=== PATIENT | male | born 1980 | race American Indian/Alaskan Native ===

== ENCOUNTER 2017-02-24 09:37 | Emergency (ER) | payer MEDICAID, OTHER ==
[~2017-02-24] VITALS: Ht 182.9 cm; Wt 108.0 kg
[2017-02-24 09:39] VITALS: BP 142/88
== END 2017-02-24 10:47 | disposition home or self-care (01) ==
LOC: ED 10:20
DX: B35.9 Dermatophytosis, unspecified (principal)
CPT/HCPCS: 99283

== ENCOUNTER 2017-09-20 16:44 | Emergency (ER) | payer MEDICAID ==
[~2017-09-20] VITALS: Ht 182.9 cm; Wt 113.4 kg
[2017-09-20 16:47] VITALS: BP 173/97
[2017-09-20] MEDS ORDERED: SODIUM CHLORIDE 0.9% 1,000ML IVBOLUS ONE (17:30)
[2017-09-20 17:51] LABS: HEMATOCRIT 45.4 % (39.2-51.8); WHITE BLOOD COUNT 9.3 x10^3/uL (3.4-10)
[2017-09-20 18:01] LABS: BLOOD UREA NITROGEN 7 mg/dL (7-18); C-REACTIVE PROTEIN, QUANT 0.57 mg/dL (0.02-0.49)
== END 2017-09-20 18:22 ==
LOC: ED 17:07
DX: L03.113 Cellulitis of right upper limb (principal)
CPT/HCPCS: 36415; 80048; 80307; 85025; 86140; 99285; G0479

== ENCOUNTER 2017-12-16 12:35 | Emergency (ER) | payer OTHER, MEDICAID ==
[~2017-12-16] VITALS: Ht 180.3 cm; Wt 107.0 kg
[2017-12-16] MEDS ORDERED: LIDOCAINE 1%, 10ML INFIL ONE (13:00)
[2017-12-16] MEDS ORDERED: DIPH,PERTUSS(ACELL),TET VAC/PF 0.5 ML IM-VACC ONE (13:00)
[2017-12-16 13:30] VITALS: BP 138/97
== END 2017-12-16 14:32 | disposition home or self-care (01) ==
LOC: ED 12:49
DX: S01.81XA Laceration without foreign body of other part of head, initial encounter (principal); W19.XXXA Unspecified fall, initial encounter; Y93.89 Activity, other specified; Y99.8 Other external cause status; Y92.89 Other specified places as the place of occurrence of the external cause
CPT/HCPCS: 12011; 70450; 90471; 90715; 99284; J3490